=== PATIENT | female | born 1960 | race Caucasian/White ===

== ENCOUNTER 2017-06-19 10:12 | Outpatient (CLI) | payer SELFPAY | END 2017-06-19 21:48 | disposition home or self-care (01) | LOC: SMA 10:12 | PROVIDERS: ATTEND Family Medicine | DX: Z12.31 Encounter for screening mammogram for malignant neoplasm of breast (principal) | CPT/HCPCS: G0202 ==

== ENCOUNTER 2018-10-23 11:25 | Outpatient (CLI) | payer OTHER | END 2018-10-23 19:13 | disposition home or self-care (01) | LOC: SMA 11:25 | PROVIDERS: ATTEND Physician Assistant Medical | DX: Z12.31 Encounter for screening mammogram for malignant neoplasm of breast (principal) | CPT/HCPCS: 77067 ==

== ENCOUNTER 2020-04-14 09:07 | Outpatient (CLI) | payer OTHER | END 2020-04-14 20:49 | disposition home or self-care (01) | LOC: SMA 09:07 | PROVIDERS: ATTEND Family Medicine | DX: Z12.31 Encounter for screening mammogram for malignant neoplasm of breast (principal) | CPT/HCPCS: 77067 ==

== ENCOUNTER 2021-04-26 08:56 | Outpatient (CLI) | payer OTHER | END 2021-04-26 21:20 | disposition home or self-care (01) | LOC: SMA 08:56 | PROVIDERS: ATTEND Family Medicine | DX: Z12.31 Encounter for screening mammogram for malignant neoplasm of breast (principal) | CPT/HCPCS: 77067 ==

== ENCOUNTER 2022-04-27 09:01 | Outpatient (CLI) | payer OTHER | END 2022-04-27 21:20 | disposition home or self-care (01) | LOC: SMA 09:01 | PROVIDERS: ATTEND General Practice | DX: Z12.31 Encounter for screening mammogram for malignant neoplasm of breast (principal) | CPT/HCPCS: 77067 ==

== ENCOUNTER 2024-06-24 09:29 | Outpatient (CLI) | payer OTHER | END 2024-06-24 20:20 | disposition home or self-care (01) | LOC: SMA 09:29 | PROVIDERS: ATTEND Physician Assistant Medical | DX: Z12.31 Encounter for screening mammogram for malignant neoplasm of breast (principal) | CPT/HCPCS: 77067 ==